=== PATIENT | male | born 1990 | race African-American/Black ===

== ENCOUNTER 2025-06-24 06:11 | Emergency (ER) | payer BC ==
[~2025-06-24] VITALS: Ht 177.8 cm; Wt 74.0 kg
[2025-06-24 06:23] VITALS: O2SAT 100
[2025-06-24 07:43] LABS: BASOPHILS % 0.5 % (0.0-2.0); EOSINOPHILS % 1.5 % (0.0-5.0); HEMATOCRIT. 37.9 % (42.0-52.0); HEMOGLOBIN. 12.6 g/dL (14.0-18.0); LYMPHOCYTES % 16.5 % (20.0-50.0); MEAN PLATELET VOLUME 7.4 fl (7.4-10.4); MONOCYTES % 7.8 % (2.0-8.0); NEUTROPHILS % 73.7 % (40.0-76.0); PLATELET 304 x1000/uL (130-400); RED BLOOD CELL COUNT 4.22 mill/uL (4.7-6.1); RED CELL DISTRIBUTION WIDTH 14.5 % (11.6-14.6)
[2025-06-24 08:02] LABS: CREATININE 1.0 mg/dL (0.6-1.3); UREA NITROGEN BLOOD 12 mg/dL (9-23)
[2025-06-24 08:04] LABS: ASPARTATE AMINOTRANSFERASE 165 IU/L (<34)
[2025-06-24 08:05] LABS: BILIRUBIN TOTAL 1.0 mg/dL (0.1-1.0); PROTEIN TOTAL 7.4 g/dL (6.0-8.3)
[2025-06-24] MEDS: METOCLOPRAMIDE HCL 10MG/2ML VIAL IV ONE (08:11)
[2025-06-24] MEDS: LACTATED RINGERS 1,000 ML IV SCH (08:11)
[2025-06-24] MEDS: ACETAMINOPHEN 1000MG/100ML 100 ML IV ONE (08:11)
[2025-06-24 10:56] VITALS: BP 111/80; PULSE 92; RESP 17; TEMP 36.9; O2SAT 100
== END 2025-06-24 10:59 | disposition home or self-care (01) ==
LOC: ER 06:11
DX: R51.9 Headache, unspecified (principal); R11.2 Nausea with vomiting, unspecified; R79.89 Other specified abnormal findings of blood chemistry
CPT/HCPCS: 80053; 83690; 85025; 36415; 70450; 76705; 96365; 96366; 96375; 99285; J2765; Z7610 ×3; J0131